=== PATIENT | male | born 1955 | race Caucasian/White ===

== ENCOUNTER → 2018-09-21 10:09 | Day surgery (SDC) | payer OTHER ==
[~2018-09-21 10:09] MED LIST: Buffered Lidocaine 1% SYRIN* 1 ML/SYRINGE INTRADERM ONE; Bupivacaine 0.5% W/EPI SDV* 30 ML VIAL ONE; Dexamethasone IV* 4 MG/ML 1 ML (4 MG) ONE; Famotidine IV* 10 MG/ML 2 ML (20 mg) IV ONE; Famotidine IV* 10 MG/ML 2 ML (20 mg) ONE; Ketorolac INJ* 30 MG/ML 1 ML VIAL ONE; Lactated Ringers 1000 ML Bag* 1,000 ML IV SCH; Lidocaine 1% INJ* 10 MG/ML 30 ML SDV ONE; Lidocaine 2% PF * 5 ML VIAL ONE; Midazolam* 1 MG/ML 2 ML VIAL (2 MG) ONE; Midazolam* 1 MG/ML 5 ML VIAL (5 MG) ONE; Naloxone* 0.4 MG/ML 1 ML VIAL IV PRN; Ondansetron INJ* 2 MG/ML VIAL IV PRN; Ondansetron INJ* 2 MG/ML VIAL ONE; Propofol* 10 MG/ML 20 ML BTL ONE; ceFAZolin 2 GM PREMIX in ORs 2 GM/50 ML BAG IVPB ONE; fentaNYL* 50 MCG/ML 2 ML VIAL (100 MCG VIAL) IV PRN; fentaNYL* 50 MCG/ML 2 ML VIAL (100 MCG VIAL) ONE; oxyCODONE/Acetamin 5/325 MG* TAB PO PRN
--- NOTE | 2018-09-21 13:41 | BRIEFOPN ---
Brief Operative Note - Surgery Procedures: Procedures OPERATIVE REPORT Pre-op: Left inguinal hernia Post-Op: left indirect inguinal hernia Procedure:Open repair with mesh of left inguinal hernia Surgeon: MD Zohaib Asst: none Anes: general with local, Dr. Paredes IVF:1 liter of crystalloid EBL:min Specimen: none Drain: none Wound: One To PACU
[2018-09-21 15:06] VITALS: BP 134/83
--- NOTE | 2018-09-21 22:01 | OP ---
DATE OF OPERATION: 09/21/18 - [facility] DATE OF : 57 SURGEON: Gregg Penny MD. SHOE PACKER: None. ANESTHESIOLOGIST: Dr. Paredes. ANESTHESIA: General with local. PRE-OP DIAGNOSIS: Left inguinal hernia. POST-OP DIAGNOSIS: Left indirect inguinal hernia. OPERATIVE PROCEDURE: Open repair with mesh of a left indirect inguinal hernia. WOUND CLASSIFICATION: I. COMPLICATIONS: None. DRAINS: None. SPECIMENS: None. DESCRIPTION OF PROCEDURE: Written informed consent was obtained, the left groin was marked with indelible ink, and preoperative antibiotics were administered. The patient was taken to the operating room and placed in a supine position. Sequential compression devices and a warming blanket were applied. The left groin and lower abdomen were prepped and draped in the usual sterile fashion. Time-out verification was completed. Marcaine 0.25% mixed with 1% lidocaine was infiltrated extensively in the left groin and an oblique incision, several fingerbreadths above the inguinal crease was made, carried down to the Kandi's fascia. The external oblique aponeurosis was opened in the direction of its fibers to expose the inguinal floor. The spermatic cord was encircled with a one quarter-inch [place] drain at the pubic tubercle. Careful evaluation of the inguinal floor showed no evidence of a direct space hernia. The internal ring was identified and the cord structures were then identified and skeletonized. There was a rather large indirect inguinal hernia sac protruding laterally through the internal ring and this was dissected free, up into the internal ring, and reduced without difficulty. Care was taken to prevent injury to the spermatic cord and the vas deferens was clearly identified. Next, a ProGrip Covidien self-gripping mesh was then placed and sutured to the pubic tubercle with a 0-Vicryl suture. This had been placed without wrinkling or folding, to cover both the direct and indirect space, and it was adherent to the conjoint tendon superiorly, the musculature laterally, as well as inguinal ligament inferiorly. Once this was completed, additional Marcaine was infiltrated. The external oblique aponeurosis was closed with a running 3-0 Vicryl suture. Kandi's fascia was closed with running 3-0 Vicryl suture. The skin was approximated with a subcuticular 4-0 Vicryl suture. Steri-Strips and Sterile dressings were applied. The patient tolerated the procedure well and was taken to the recovery room in stable condition. [id number]/[facility] #: [id number] GLORIA
== END | disposition home or self-care (01) ==
LOC: OR 10:09
PROVIDERS: ATTEND Surgery
DX: K40.90 Unilateral inguinal hernia, without obstruction or gangrene, not specified as recurrent (principal); K21.9 Gastro-esophageal reflux disease without esophagitis; E78.00 Pure hypercholesterolemia, unspecified
CPT/HCPCS: J0690; J1100; J1885; J2250; J2405; J2704; J3010

== ENCOUNTER 2019-02-24 13:20 | Emergency (ER) | payer OTHER ==
[2019-02-24 15:27] LABS: ABS Eosinophils 0.1 10^3/ul (0-0.6); ABS Lymphocytes 0.7 10^3/ul (1.0-4.8); ABS Monocytes 0.4 10^3/ul (0-0.8); ABS Neutrophils 5.8 10^3/ul (1.5-7.7); Eosinophil % 1.7 %; Hematocrit 45 % (42-52); Hemoglobin 15.3 g/dL (14.0-18.0); Lymphocyte % 10.1 %; Mean Corpuscular HGB Conc 35 g/dL (31-36); Mean Corpuscular Hemoglobin 30 pg (27-31); Mean Corpuscular Volume 87 fL (80-94); Mean Platelet Volume 7.3 fL (7.4-10.4); Nucleated Red Blood Cells % 0.2; Platelet Count 157 10^3/uL (150-450); Red Blood Count 5.11 10^6 /uL (4.18-5.48); Red Cell Distribution Width 13 % (10-15); White Blood Count 7.1 10^3/uL (3.5-10.8)
[2019-02-24] MEDS ORDERED: Ibuprofen TAB* 600 MG PO ONE (15:29)
[2019-02-24 15:44] LABS: BUN/Creatinine Ratio 15.6 (8-20); Calcium 9.7 mg/dL (8.6-10.3); EGFR Non-African American 79.4 (>60); Potassium 4.5 mmol/L (3.5-5.0)
--- NOTE | 2019-02-24 16:06 | ED ---
Neck Pain - HPI Summary HPI Summary: Patient is a 63-year-old male who presents emergency department for evaluation of a neck injury that occurred yesterday. 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 Patient states initially he did not have much pain but through the evening he noted increased pain and swelling to the right side of his neck. Patient is not anticoagulated. He denies headache, chest pain, shortness of breath. Symptoms are mild in severity. Moving neck makes symptoms worse. Rest makes symptoms better. - History of Current Complaint Chief Complaint: EDNeckComplaint Stated Complaint: INJURY TO NECK PER PT Time Seen by Provider: 02/24/19 14:44 Hx Obtained From: Patient Pain Intensity: 2 - Allergies/Home Medications Allergies/Adverse Reactions: Allergies Allergy/AdvReac Type Severity Reaction Status Date / Time latex Allergy SKIN Verified 02/24/19 13:24 IRRITATION PMH/Surg Hx/FS Hx/Imm Hx Previously Healthy: Yes Endocrine/Hematology History: Denies: Hx Anticoagulant Therapy, Hx Diabetes Cardiovascular History: Reports: Hx Hypercholesterolemia Denies: Hx Congestive Heart Failure, Hx Hypertension, Other Cardiovascular Problems/Disorders Respiratory History: Denies: Other Respiratory Problems/Disorders GI History: Reports: Hx Gastroesophageal Reflux Disease - ON MEDICATION FOR Denies: Other GI Disorders Sensory History: Reports: Hx Contacts or Glasses - GLASSES Denies: Hx Hearing Aid Opthamlomology History: Reports: Hx Contacts or Glasses - GLASSES Neurological History: Denies: Other Neuro Impairments/Disorders - Surgical History Surgery Procedure, Year, and Place: SINUS SURGERY,. APPENDECTOMY. hernia repair. HEMORROIDECTOMY-04/1993 Hx Anesthesia Reactions: Yes - CONSTIPATION AFTER;1992-UNABLE TO URINATE AFTER SURGERY Infectious Disease History: No Infectious Disease History: Denies: Traveled Outside the [place] in Last 30 Days - Family History Known Family History: Positive: Non-Contributory - Social History Occupation: Employed Full-time Lives: With Family Alcohol Use: Weekly Alcohol Amount: 6 BEERS USUALLY ON WEEKENDS Substance Use Type: Reports: None Smoking Status (MU): Never Smoked Tobacco Have You Smoked in the Last Year: No Review of Systems Cardiovascular: Negative Respiratory: Negative Positive: Other - anterior neck pain Positive: Bruising Neurological: Negative Negative: Headache, Weakness, Paresthesia, Numbness All Other Systems Reviewed And Are Negative: Yes Physical Exam Triage Information Reviewed: Yes Vital Signs On Initial Exam: Initial Vitals Temp Pulse Resp BP Pulse Ox 98.4 F 80 14 151/98 99 02/24/19 13:21 02/24/19 13:21 02/24/19 13:21 02/24/19 13:21 02/24/19 13:21 Vital Signs Reviewed: Yes Appearance: Positive: Well-Appearing - Pt. sitting up in bed in NAD. Family present. Skin: Positive: Warm, Dry Head/Face: Positive: Normal Head/Face Inspection Eyes: Positive: Normal, EOMI, RAKAN Neck: Positive: Supple, Other: - mild edema and ecchymosis noted to the right anterior neck. No crepitus. Pain with ROM. No midline tenderness. Respiratory/Lung Sounds: Positive: Clear to Auscultation, Breath Sounds Present Cardiovascular: Positive: Normal, RRR Musculoskeletal: Positive: Normal, Strength/ROM Intact - equal radial pulses bilaterally. Neurological: Positive: Normal, CN Intact II-III Psychiatric: Positive: Affect/Mood Appropriate Diagnostics - Vital Signs Vital Signs Temp Pulse Resp BP Pulse Ox 02/24/19 13:21 98.4 F 80 14 151/98 99 - Laboratory Lab Results: Lab Results 02/24/19 02/24/19 Range/Units 15:19 15:19 WBC 7.1 (3.5-10.8) 10^3/uL RBC 5.11 (4.18-5.48) 10^6 /uL Hgb 15.3 (14.0-18.0) g/dL Hct 45 (42-52) % MCV 87 (80-94) fL MCH 30 (27-31) pg MCHC 35 (31-36) g/dL RDW 13 (10-15) % Plt Count 157 (150-450) 10^3/uL MPV 7.3 L (7.4-10.4) fL Neut % (Auto) 81.6 % Lymph % (Auto) 10.1 % [place] % (Auto) 6.2 % Eos % (Auto) 1.7 % Baso % (Auto) 0.4 % Absolute Neuts (auto) 5.8 (1.5-7.7) 10^3/ul Absolute Lymphs (auto) 0.7 L (1.0-4.8) 10^3/ul Absolute Monos (auto) 0.4 (0-0.8) 10^3/ul Absolute Eos (auto) 0.1 (0-0.6) 10^3/ul Absolute Basos (auto) 0.0 (0-0.2) 10^3/ul Absolute Nucleated RBC 0.0 10^3/ul Nucleated RBC % 0.2 Sodium 138 (135-145) mmol/L Potassium 4.5 (3.5-5.0) mmol/L Chloride 105 (101-111) mmol/L Carbon Dioxide 27 (22-32) mmol/L Anion Gap 6 (2-11) mmol/L BUN 15 (6-24) mg/dL Creatinine 0.96 (0.67-1.17) mg/dL Est GFR ( Amer) 96.0 (>60) Est GFR (Non-Af Amer) 79.4 (>60) BUN/Creatinine Ratio 15.6 (8-20) Glucose 97 (70-100) mg/dL Calcium 9.7 (8.6-10.3) mg/dL Result Diagrams: 02/24/19 15:19 02/24/19 15:19 Lab Statement: Any lab studies that have been ordered have been reviewed, and results considered in the medical decision making process. Neck Course/Dx - Course Course Of Treatment: Pt. presenting with anterior neck injury with edema. Stable VS. Suspect hematoma but will obtain CT to r/o vascular injury. CT per radiology: IMPRESSION: Contusion along the right anterior neck with no contrast extravasation. Results discussed. Advised ice, tylenol or motrin. Will f.u with pcp if needed. Activity as tolerated. Pt. understands and agrees with plan. - Diagnoses Differential Dx/HQI/PQRI: Positive: Sprain, Strain, Trauma Provider Diagnoses: Hematoma of neck Discharge - Sign-Out/Discharge Documenting (check all that apply): Patient Departure Patient Received Moderate/Deep Sedation with Procedure: No - Discharge Plan Condition: Good Disposition: HOME Patient Education Materials: Contusion in Adults (ED) Referrals: Manuel Fontana MD [Primary Care Provider] - Additional Instructions: Follow up with PCP if needed Ice area intermittently Tylenol or Motrin for pain as directed Return to ER if symptoms change or worsen - Billing Disposition and Condition Condition: GOOD Disposition: Home
[2019-02-24] MEDS ORDERED: Iohexol 300* (CONTRAST) 10 ML SDV IV ONE (16:23)
[2019-02-24 17:29] VITALS: BP 146/89
== END 2019-02-24 17:28 | disposition home or self-care (01) ==
LOC: ED 13:20
DX: S10.83XA Contusion of other specified part of neck, initial encounter (principal); W22.8XXA Striking against or struck by other objects, initial encounter; Y93.89 Activity, other specified; Y92.214 College as the place of occurrence of the external cause; Y99.0 Civilian activity done for income or pay; M50.321 Other cervical disc degeneration at C4-C5 level; K21.9 Gastro-esophageal reflux disease without esophagitis; Z91.040 Latex allergy status
CPT/HCPCS: 36415; 70491; 80048; 85025; 99282; A9270-GY; Q9967

== ENCOUNTER 2019-07-27 16:42 | Emergency (ER) | payer OTHER ==
[2019-07-27] MEDS ORDERED: Acetaminophen TAB* 325 MG PO ONE (17:15)
[2019-07-27] MEDS ORDERED: Meclizine TAB* 12.5 MG PO ONE (17:15)
--- NOTE | 2019-07-27 17:16 | ED ---
Back Pain - HPI Summary HPI Summary: 63 year old male presents with back pain today. He states that pain is on the right side of his lower back. Denies any numbness or tingling. No urinary symptoms. Denies any chest pain or shortness of breath. He states that today he got dizzy. States it was worse with head movement. States that dizziness has improved. He denies any headache. He states that he had a little bit of blurry vision that has resolved. No difficulties with speech. No weakness. Has a chronic cough. No recent illness. No abdominal pain. No vomiting. No loss of bowel or bladder. No saddle anesthesia's. Has history of GERD and high cholesterol. - History of Current Complaint Chief Complaint: EDBackInjuryPain Stated Complaint: BACK PAIN/DIZZY PER PT Time Seen by Provider: 07/27/19 17:06 Pain Intensity: 2 - Allergies/Home Medications Allergies/Adverse Reactions: Allergies Allergy/AdvReac Type Severity Reaction Status Date / Time latex Allergy SKIN Verified 02/24/19 13:24 IRRITATION Home Medications: Home Medications Omeprazole CAP (NF) [Prilosec CAP* 20 MG] 20 mg PO DAILY 07/27/19 [History Confirmed 07/27/19] PMH/Surg Hx/FS Hx/Imm Hx Endocrine/Hematology History: Denies: Hx Anticoagulant Therapy, Hx Diabetes Cardiovascular History: Reports: Hx Hypercholesterolemia Denies: Hx Congestive Heart Failure, Hx Hypertension, Other Cardiovascular Problems/Disorders Respiratory History: Denies: Other Respiratory Problems/Disorders GI History: Reports: Hx Gastroesophageal Reflux Disease - ON MEDICATION FOR Denies: Other GI Disorders Sensory History: Reports: Hx Contacts or Glasses - GLASSES Denies: Hx Hearing Aid Opthamlomology History: Reports: Hx Contacts or Glasses - GLASSES Neurological History: Denies: Other Neuro Impairments/Disorders - Surgical History Surgery Procedure, Year, and Place: SINUS SURGERY,. APPENDECTOMY. hernia repair. HEMORROIDECTOMY-04/1993 Hx Anesthesia Reactions: Yes - CONSTIPATION AFTER;1992-UNABLE TO URINATE AFTER SURGERY Infectious Disease History: No Infectious Disease History: Denies: Traveled Outside the [place] in Last 30 Days - Family History Known Family History: Positive: Non-Contributory - Social History Alcohol Use: Weekly Alcohol Amount: 6 BEERS USUALLY ON WEEKENDS Substance Use Type: Reports: None Smoking Status (MU): Never Smoked Tobacco Have You Smoked in the Last Year: No Review of Systems Negative: Fever Negative: Chest Pain Negative: Shortness Of Breath Positive: Vomiting Positive: Myalgia - back pain Neurological: Other - dizziness All Other Systems Reviewed And Are Negative: Yes Physical Exam Triage Information Reviewed: Yes Vital Signs On Initial Exam: Initial Vitals Temp Pulse Resp BP Pulse Ox 97.5 F 71 14 172/102 99 07/27/19 16:45 07/27/19 16:45 07/27/19 16:45 07/27/19 16:45 07/27/19 16:45 Vital Signs Reviewed: Yes Appearance: Positive: Well-Appearing Skin: Positive: Warm, Dry Head/Face: Positive: Normal Head/Face Inspection Eyes: Positive: Normal, EOMI, RAKAN, Conjunctiva Clear ENT: Positive: Normal ENT inspection, Pharynx normal, TMs normal Respiratory/Lung Sounds: Positive: Clear to Auscultation, Breath Sounds Present Cardiovascular: Positive: Normal, RRR Abdomen Description: Negative: CVA Tenderness (R), CVA Tenderness (L) Musculoskeletal: Positive: Strength/ROM Intact - back, Other - tenderness lower back on right side of back, neg SLR, good pulses Neurological: Positive: Sensory/Motor Intact, Alert, Oriented to Person Place, Time, CN Intact II-III, Babinski Bilateral - normal Psychiatric: Positive: Normal Procedures - Sedation Patient Received Moderate/Deep Sedation with Procedure: No Diagnostics - Vital Signs Vital Signs Temp Pulse Resp BP Pulse Ox 07/27/19 16:45 97.5 F 71 14 172/102 99 - Laboratory Result Diagrams: 07/27/19 17:25 07/27/19 17:25 Lab Statement: Any lab studies that have been ordered have been reviewed, and results considered in the medical decision making process. - Radiology back Radiology Interpretation Completed By: Radiologist Summary of Radiographic Findings: IMPRESSION: OSTEOPENIA. MILD DEGENERATIVE DISC DISEASE AND OSTEOARTHRITIS. - CT back CT Interpretation Completed By: Radiologist Summary of CT Findings: IMPRESSION: No acute abdominal or pelvic abnormality. Enlarged prostate. Mild fat stranding of the inferior buttocks. Clinical correlation with cellulitis. No fluid collections. - EKG No standard instances Cardiac Rate: NL EKG Rhythm: Sinus Rhythm Summary of EKG Findings: sinus rhythm Re-Evaluation - Re-Evaluation First Eval Re-Evaluation Time: 18:09 Change: Improved Comment: dizziness resolved, pain better, is concerned that he has renal cancer, will wait for urine. Second Eval Re-Evaluation Time: 20:35 Comment: no rash seen on buttock Back Pain Course/Dx - Course Course Of Treatment: 63 year old male presents with back pain today. He states that pain is on the right side of his lower back. Denies any numbness or tingling. No urinary symptoms. Denies any chest pain or shortness of breath. He states that today he got dizzy. States it was worse with head movement. States that dizziness has improved. He denies any headache. He states that he had a little bit of blurry vision that has resolved. No difficulties with speech. No weakness. Has a chronic cough. No recent illness. No abdominal pain. No vomiting. No loss of bowel or bladder. No saddle anesthesia's. Has history of GERD and high cholesterol. On exam has normal neuro exam. Tenderness of the right side lower back. Has no neuro deficit. xray shows degenerative changes. wbc 11.4. troponin .01. ekg shows sinus rhythm with peaked T waves at V2, v3 but electrolytes normal. urine shows hematuria. concerned that has renal CA as has fam hx and urine shows hematuria so will get CT. CT shows no renal mass. does show potential cellulitis but no signs of cellulitis seen on exam at this time. patient dizziness resolved with meclizine so will give script for such. will have follow up with primary. patient understand and agrees with plan. - Diagnoses Differential Diagnosis/HQI/PQRI: Positive: Fracture, Herniated Disc, Strain Provider Diagnoses: Back pain, Dizziness Discharge ED - Sign-Out/Discharge Documenting (check all that apply): Patient Departure - Discharge Plan Condition: Good Disposition: HOME Prescriptions: Meclizine TAB* [Antivert 12.5 TAB*] 25 mg PO TID #15 tab Patient Education Materials: Dizziness (ED), Back Pain (ED) Referrals: Maunel Fontana MD [Primary Care Provider] - Additional Instructions: take meclizine up to three times a day Use ibuprofen or Tylenol for pain every 6 hours ice/heat area, move as much as possible Follow up with primary within 5 days Return to ED if develop any new or worsening symptoms - Billing Disposition and Condition Condition: GOOD Disposition: Home - Attestation Statements Provider Attestation: I was available for consult. This patient was seen by the CLOVER. The patient was not presented to, seen by, or examined by me. Uriel Diamond MD
[2019-07-27 17:37] LABS: ABS Lymphocytes 0.5 10^3/ul (1.0-4.8); ABS Monocytes 0.4 10^3/ul (0-0.8); ABS Neutrophils 10.4 10^3/ul (1.5-7.7); Eosinophil % 0.4 %; Hematocrit 45 % (42-52); Hemoglobin 15.4 g/dL (14.0-18.0); Lymphocyte % 4.6 %; Mean Corpuscular HGB Conc 35 g/dL (31-36); Mean Corpuscular Hemoglobin 30 pg (27-31); Mean Corpuscular Volume 87 fL (80-94); Mean Platelet Volume 7.3 fL (7.4-10.4); Platelet Count 166 10^3/uL (150-450); Red Blood Count 5.13 10^6 /uL (4.18-5.48); Red Cell Distribution Width 13 % (10-15); White Blood Count 11.4 10^3/uL (3.5-10.8)
[2019-07-27 17:51] LABS: Albumin 4.7 g/dL (3.2-5.2); BUN/Creatinine Ratio 15.5 (8-20); Calcium 9.2 mg/dL (8.6-10.3); EGFR African American 88.5 (>60); EGFR Non-African American 73.2 (>60); Globulin 2.4 g/dL (2-4); Potassium 4.1 mmol/L (3.5-5.0); Total Bilirubin 0.4 mg/dL (0.2-1.0); Total Protein 7.1 g/dL (6.4-8.9)
[2019-07-27 17:53] LABS: Troponin I 0.01 ng/mL (<0.03)
[2019-07-27 18:23] LABS: TSH (Thyroid Stimulating Horm) 2.11 mcIU/mL (0.34-5.60)
[2019-07-27 18:23] LABS: Urine Appearance Clear; Urine Bilirubin Negative (Negative); Urine Blood 1+ (Negative); Urine Color Yellow; Urine Glucose Negative (Negative); Urine Ketones Negative (Negative); Urine Nitrite Negative (Negative); Urine Protein Negative (Negative); Urine Specific Gravity 1.018 (1.010-1.030); Urine Urobilinogen Negative (Negative)
[2019-07-27 18:27] LABS: Urine Bacteria Absent (Absent); Urine Red Blood Cell Trace(0-2/hpf) (Absent); Urine White Blood Cell Absent (Absent)
[2019-07-27 18:31] LABS: C Reactive Protein 1.54 mg/L (<8.01)
[2019-07-27 20:47] VITALS: BP 146/95
== END 2019-07-27 20:42 | disposition home or self-care (01) ==
LOC: ED 16:42
DX: M54.9 Dorsalgia, unspecified (principal); R42 Dizziness and giddiness; E78.00 Pure hypercholesterolemia, unspecified; K21.9 Gastro-esophageal reflux disease without esophagitis; Z79.899 Other long term (current) drug therapy
CPT/HCPCS: 36415; 72110; 74176; 80053; 81003; 81015; 83605; 83735; 84443; 84484; 85025; 86140; 93005; 99283; A9270-GY